=== PATIENT | female | born 1980 | race Caucasian/White ===

== ENCOUNTER → 2018-03-30 | Outpatient (CLI) | payer OTHER ==
--- NOTE | 2018-03-30 14:10 | US ---
EXAMINATION TYPE: Transabdominal DATE OF EXAM: 01/04/18 COMPARISON: NONE CLINICAL HISTORY: O46.91Antepartum hemorrhage, unspecified, first tr. brown discharge noticed 4 days prior, pink discharge seen yesterday, no cramping. . Positive beta-hCG test. EXAM PERFORMED: OBTA EXAM MEASUREMENTS: GESTATIONAL AGE / DATING Physician Established: (12 weeks/3 days) EDC: 10/09/2018 Dates by LMP: (12 weeks/3 days) EDC: 10/09/2018 Dates by First Scan: No previous this is first scan Dates by Current Scan for: (9 weeks/2 days) EDC: 10/31/2018 MATERNAL ANATOMY Uterus: 13.8 x 7.1 x 5.7cm Right Ovary: 3.0 x 1.8 x 2.0cm Left Ovary: 3.5 x 3.2 x 3.2cm Post CDS / Adnexa: wnl Presence of free fluid: no Presence of corpus luteal cyst: possible on the left = 2.5cm Presence of subchorionic bleed: no GESTATION / SURVEY CRL: not seen MSD: 3.7cm (9 weeks/2 days) Yolk Sac (normal less than 6mm): 0.3cm IUP: gestation sac with possible yolk sac only Date of LMP: 01/02/2018 Beta HcG (if available): not available tech impression given to Dr potter regarding no fetus seen within 9 week gestational sac Anteverted uterus is seen. Endometrium is slightly thickened. There is centrally elongated anechoic a traci could reflect gestational sac, this is abnormal in appearance due to inferior elongation. No feta l pole is present. There is possible tiny 3 to 4 mm yolk sac marked image 23 inferiorly. No free flui d is seen in pelvic cul-de-sac. Both ovaries are identified. No suspicious extraovarian adnexal lesions are seen. IMPRESSION: Abnormal study, given patient's history of discharge and physician established date of confinement ba sed on last known menstrual period ongoing spontaneous is suspected. Ectopic and t oo early to visualize intrauterine gestation though felt much less likely are not excluded. Consider serial beta hCG and/or ultrasound follow-up.
== END | disposition home or self-care (01) ==
LOC: RADUSWWP 13:03
PROVIDERS: ATTEND Obstetrics & Gynecology
DX: O00.91 Unspecified ectopic pregnancy with intrauterine pregnancy (principal); Z3A.09 9 weeks gestation of pregnancy
CPT/HCPCS: 76801

== ENCOUNTER → 2018-04-01 | Outpatient (CLI) | payer OTHER | END | disposition home or self-care (01) | LOC: LABWHC1 11:34 | PROVIDERS: ATTEND Obstetrics & Gynecology | DX: O03.9 Complete or unspecified spontaneous abortion without complication (principal) | CPT/HCPCS: 36415; 84702 ==

== ENCOUNTER → 2018-04-09 | Outpatient (CLI) | payer OTHER | END | disposition home or self-care (01) | LOC: LABWHC1 10:18 | PROVIDERS: ATTEND Obstetrics & Gynecology | DX: O03.9 Complete or unspecified spontaneous abortion without complication (principal) | CPT/HCPCS: 36415; 84702 ==

== ENCOUNTER → 2018-04-18 | Outpatient (CLI) | payer OTHER | END | disposition home or self-care (01) | LOC: LABWHC1 10:16 | PROVIDERS: ATTEND Obstetrics & Gynecology | DX: O03.9 Complete or unspecified spontaneous abortion without complication (principal) | CPT/HCPCS: 36415; 84702 ==

== ENCOUNTER → 2019-02-16 | Outpatient (CLI) | payer OTHER ==
--- NOTE | 2019-02-17 07:31 | US ---
EXAMINATION TYPE: US pelvic complete DATE OF EXAM: 02/16/2019 COMPARISON: NONE CLINICAL HISTORY: N93.8 DUB. Irregular periods x couple months, 3, para 2, miscarriage 1 TECHNIQUE: . Transabdominal sonographic images of the pelvis were acquired. Date of LMP: 01/20/2019 EXAM MEASUREMENTS: Uterus: 9.9 x 4.3 x 5.4 cm Endometrial Stripe: 0.9 cm Right Ovary: 2.7 x 1.8 x 2.0 cm Left Ovary: 2.9 x 2.3 x 2.4 cm 1. Uterus: anteverted, borderline enlarged, mildly heterogeneous 2. Endometrium: wnl 3. Right Ovary: wnl 4. Left Ovary: 2.0 x 1.4 x 1.8cm cystic area 5. Bilateral Adnexa: wnl 6. Posterior cul-de-sac: wnl IMPRESSION: Small left ovarian cyst. Heterogeneous echotexture within the myometrium is underlying fi broid uterus. Pelvic MRI may be of benefit.
== END | disposition home or self-care (01) ==
LOC: RADUSWWP 16:15
PROVIDERS: ATTEND Obstetrics & Gynecology
DX: N85.8 Other specified noninflammatory disorders of uterus (principal); N83.202 Unspecified ovarian cyst, left side
CPT/HCPCS: 76856

== ENCOUNTER 2020-01-22 02:52 | Emergency (ER) | payer OTHER ==
--- NOTE | 2020-01-22 03:02 | ED ---
Female Urogenital HPI - General Stated complaint: Abdominal Pain, 5 wks Time Seen by Provider: 01/22/20 02:58 Source: RN notes reviewed, old records reviewed - History of Present Illness Initial comments: This is a 39-year-old female DF for evaluation patient presents today for evaluation of possible versus abdominal pain and no scant discharge no active bleeding. Mild nausea no active vomiting. Patient is a . Coming in for 2 days of abdominal pain MD Complaint: pelvic pain -: days(s) (2) Radiation: suprapubic, RLQ Severity: moderate Severity scale (1-10): 7 Quality: cramping, aching Consistency: constant Improves with: none Worsens with: none Patient : Yes Associated Symptoms: vaginal discharge - Related Data Allergies Allergy/AdvReac Type Severity Reaction Status Date / Time latex Allergy Anaphylaxis Verified 01/22/20 03:04 Review of Systems ROS Statement: Those systems with pertinent positive or pertinent negative responses have been documented in the HPI. ROS Other: All systems not noted in ROS Statement are negative. General Exam General appearance: alert, in no apparent distress, anxious Head exam: Present: atraumatic, normocephalic, normal inspection Eye exam: Present: normal appearance, PERRL, EOMI. Absent: scleral icterus, conjunctival injection, periorbital swelling ENT exam: Present: normal exam, mucous membranes moist Neck exam: Present: normal inspection. Absent: tenderness, meningismus, lymphadenopathy Respiratory exam: Present: normal lung sounds bilaterally. Absent: respiratory distress, wheezes, rales, rhonchi, stridor Cardiovascular Exam: Present: normal rhythm, tachycardia, normal heart sounds. Absent: systolic murmur, diastolic murmur, rubs, gallop, clicks GI/Abdominal exam: Present: soft, tenderness (Suprapubic), normal bowel sounds. Absent: distended, guarding, rebound, rigid Extremities exam: Present: normal inspection, full ROM, normal capillary refill. Absent: tenderness, pedal edema, joint swelling, calf tenderness Back exam: Present: normal inspection Neurological exam: Present: alert, oriented X3, CN II-XII intact Psychiatric exam: Present: normal affect, normal mood Skin exam: Present: warm, dry, intact, normal color. Absent: rash Course Vital Signs 01/22/20 03:02 Temperature 98.4 F Pulse Rate 127 H Respiratory 16 Rate Blood Pressure 134/87 O2 Sat by Pulse 98 Oximetry - Reevaluation(s) Reevaluation #1: 01/22/20 05:03 Medical records reviewed Reevaluation #2: 01/22/20 05:03 Patient is not requiring pain control here in the ER Reevaluation #3: 01/22/20 05:03 Spoke with patient and aware of results questions answered - Consultations Consultation #1: Spoke with Dr. Yu for Dr. Coello will see in the office Wednesday for repeat beta hCG Medical Decision Making - Medical Decision Making 39 female DF for abdominal pain and pelvic pain and . Patient is in no acute distress with normal hemoglobin normal vital signs here in the ER heart rate is improved, urine is negative we will culture ultrasound too early for beta, will follow-up for repeat beta on Wednesday - Lab Data Result diagrams: 01/22/20 03:30 01/22/20 03:30 Lab Results 01/22/20 01/22/20 01/22/20 Range/Units 03:10 03:30 03:30 WBC 5.4 (3.8-10.6) k/uL RBC 4.63 (3.80-5.40) m/uL Hgb 13.2 (11.4-16.0) gm/dL Hct 40.2 (34.0-46.0) % MCV 86.8 (80.0-100.0) fL MCH 28.4 (25.0-35.0) pg MCHC 32.7 (31.0-37.0) g/dL RDW 12.5 (11.5-15.5) % Plt Count 183 (150-450) k/uL Neutrophils % 39 % Lymphocytes % 49 % Monocytes % 4 % Eosinophils % 4 % Basophils % 1 % Neutrophils # 2.1 (1.3-7.7) k/uL Lymphocytes # 2.6 (1.0-4.8) k/uL Monocytes # 0.2 (0-1.0) k/uL Eosinophils # 0.2 (0-0.7) k/uL Basophils # 0.0 (0-0.2) k/uL PT 10.1 (9.0-12.0) sec INR 1.0 (<1.2) APTT 22.8 (22.0-30.0) sec Sodium (137-145) mmol/L Potassium (3.5-5.1) mmol/L Chloride (98-107) mmol/L Carbon Dioxide (22-30) mmol/L Anion Gap mmol/L BUN (7-17) mg/dL Creatinine (0.52-1.04) mg/dL Est GFR (CKD-EPI)AfAm (>60 ml/min/1.73 sqM) Est GFR (CKD-EPI)NonAf (>60 ml/min/1.73 sqM) Glucose (74-99) mg/dL Calcium (8.4-10.2) mg/dL Total Bilirubin (0.2-1.3) mg/dL AST (14-36) U/L ALT (4-34) U/L Alkaline Phosphatase (38-126) U/L Total Protein (6.3-8.2) g/dL Albumin (3.5-5.0) g/dL HCG, Quant mIU/mL Urine Color Yellow Urine Appearance Clear (Clear) Urine pH 6.0 (5.0-8.0) Ur Specific [place] 1.019 (1.001-1.035) Urine Protein Negative (Negative) Urine Glucose (UA) Negative (Negative) Urine Ketones 1+ H (Negative) Urine Blood Small H (Negative) Urine Nitrite Negative (Negative) Urine Bilirubin Negative (Negative) Urine Urobilinogen <2.0 (<2.0) mg/dL Ur Leukocyte Esterase Large H (Negative) Urine RBC 1 (0-5) /hpf Urine WBC 9 H (0-5) /hpf Ur Squamous Epith Cells 4 (0-4) /hpf Urine Bacteria Occasional H (None) /hpf Urine Mucus Few H (None) /hpf Blood Type Blood Type Recheck Bld Type Recheck Status 01/22/20 01/22/20 Range/Units 03:30 03:30 WBC (3.8-10.6) k/uL RBC (3.80-5.40) m/uL Hgb (11.4-16.0) gm/dL Hct (34.0-46.0) % MCV (80.0-100.0) fL MCH (25.0-35.0) pg MCHC (31.0-37.0) g/dL RDW (11.5-15.5) % Plt Count (150-450) k/uL Neutrophils % % Lymphocytes % % Monocytes % % Eosinophils % % Basophils % % Neutrophils # (1.3-7.7) k/uL Lymphocytes # (1.0-4.8) k/uL Monocytes # (0-1.0) k/uL Eosinophils # (0-0.7) k/uL Basophils # (0-0.2) k/uL PT (9.0-12.0) sec INR (<1.2) APTT (22.0-30.0) sec Sodium 137 (137-145) mmol/L Potassium 3.8 (3.5-5.1) mmol/L Chloride 104 (98-107) mmol/L Carbon Dioxide 22 (22-30) mmol/L Anion Gap 11 mmol/L BUN 12 (7-17) mg/dL Creatinine 0.56 (0.52-1.04) mg/dL Est GFR (CKD-EPI)AfAm >90 (>60 ml/min/1.73 sqM) Est GFR (CKD-EPI)NonAf >90 (>60 ml/min/1.73 sqM) Glucose 101 H (74-99) mg/dL Calcium 9.7 (8.4-10.2) mg/dL Total Bilirubin 0.4 (0.2-1.3) mg/dL AST 22 (14-36) U/L ALT 16 (4-34) U/L Alkaline Phosphatase 51 (38-126) U/L Total Protein 8.0 (6.3-8.2) g/dL Albumin 4.9 (3.5-5.0) g/dL HCG, Quant 602.7 mIU/mL Urine Color Urine Appearance (Clear) Urine pH (5.0-8.0) Ur Specific [place] (1.001-1.035) Urine Protein (Negative) Urine Glucose (UA) (Negative) Urine Ketones (Negative) Urine Blood (Negative) Urine Nitrite (Negative) Urine Bilirubin (Negative) Urine Urobilinogen (<2.0) mg/dL Ur Leukocyte Esterase (Negative) Urine RBC (0-5) /hpf Urine WBC (0-5) /hpf Ur Squamous Epith Cells (0-4) /hpf Urine Bacteria (None) /hpf Urine Mucus (None) /hpf Blood Type A Positive Blood Type Recheck No Previous Record Bld Type Recheck Status ABR ONLY - Radiology Data Radiology results: report reviewed (Ultrasound shows no definite gestational sac no ectopic), image reviewed Disposition Clinical Impression: Pelvic pain, Abdominal pain affecting Narrative: Ectopic V Early v Miscarriage Disposition: ADMITTED IP TO THIS [facility] Condition: Good Instructions (If sedation given, give patient instructions): Abdominal Pain in (ED) Is patient prescribed a controlled substance at d/c from ED?: No Referrals: Dirk Reilly III, MD [Primary Care Provider] - 1-2 days Prisca Coello DO [Doctor of Osteopathic Medicine] - 1-2 days
[2020-01-22 03:04] VITALS: BP 134/87; PULSE 127; RESP 16; TEMP 98.4
[2020-01-22] MEDS ORDERED: SODIUM CHLORIDE 0.9% 500 ML 500 ML IV ONE (03:09)
[2020-01-22] MEDS: SODIUM CHLORIDE 0.9% 1,000 ML IV ONE ×2 (03:43→03:44)
[2020-01-22 03:58] LABS: Basophils % (A) 1 %; Eosinophils # (A) 0.2 k/uL (0-0.7); Eosinophils % (A) 4 %; HCT 40.2 % (34.0-46.0); HGB 13.2 gm/dL (11.4-16.0); Lymphocytes # (A) 2.6 k/uL (1.0-4.8); Lymphocytes % (A) 49 %; MCH 28.4 pg (25.0-35.0); MCHC 32.7 g/dL (31.0-37.0); MCV 86.8 fL (80.0-100.0); Mean Platelet Volume 9.3; Monocytes # (A) 0.2 k/uL (0-1.0); Monocytes % (A) 4 %; Neutrophils # (A) 2.1 k/uL (1.3-7.7); Neutrophils % (A) 39 %; Platelet Count 183 k/uL (150-450); RBC 4.63 m/uL (3.80-5.40); RDW 12.5 % (11.5-15.5); WBC 5.4 k/uL (3.8-10.6)
[2020-01-22 04:05] LABS: Partial Thromboplastin Time 22.8 sec (22.0-30.0); Prothrombin Time 10.1 sec (9.0-12.0)
[2020-01-22 04:17] LABS: Appearance,Urine Clear (Clear); Bacteria,Urine Occasional /hpf; Bilirubin,Urine Negative (Negative); Blood,Urine Small (Negative); Color,Urine Yellow; Glucose,Urine (UA) Negative (Negative); Ketones,Urine 1+ (Negative); Leukocyte Esterase,Urine Large (Negative); Mucus,Urine Few /hpf; Nitrite,Urine Negative (Negative); Protein,Urine Negative (Negative); RBC,Urine 1 /hpf (0-5); Specific Gravity,Urine 1.019 (1.001-1.035); Squamous Epithelial Cell,Urine 4 /hpf (0-4); Urobilinogen,Urine <2.0 mg/dL (<2.0); WBC,Urine 9 /hpf (0-5)
[2020-01-22 04:20] LABS: ALT 16 U/L (4-34); AST 22 U/L (14-36); African American GFR (CKD) >90 (>60 ml/min/1.73 sqM); Albumin 4.9 g/dL (3.5-5.0); Alkaline Phosphatase 51 U/L (38-126); Anion Gap 11 mmol/L; Blood Urea Nitrogen 12 mg/dL (7-17); Calcium 9.7 mg/dL (8.4-10.2); Carbon Dioxide 22 mmol/L (22-30); Chloride 104 mmol/L (98-107); Glucose 101 mg/dL (74-99); Non-African American GFR(CKD) >90 (>60 ml/min/1.73 sqM); Potassium 3.8 mmol/L (3.5-5.1); Sodium 137 mmol/L (137-145); Total Bilirubin 0.4 mg/dL (0.2-1.3)
--- NOTE | 2020-01-22 04:36 | US ---
EXAMINATION TYPE: Transabdominal DATE OF EXAM: 01/22/2020 4:23 AM COMPARISON: NONE CLINICAL HISTORY: pain. EXAM PERFORMED: EXAM MEASUREMENTS: GESTATIONAL AGE / DATING Physician Established: Not yet established Dates by LMP: (5 weeks/3 days) EDC: 09/20/20 Dates by First Scan: No previous this is first scan Dates by Current Scan for: Unable to date by today's study MATERNAL ANATOMY Uterus: 8.4 x 4.4 x 5.5cm Right Ovary: 1.9 x 1.5 x 1.5cm Arterial and venous flow shown within ovary. No evidence of torsion Left Ovary: obscured by bowel gas Post CDS / Adnexa: wnl Mild free fluid seen in cul de sac. GESTATION / SURVEY MSD: 0.6 cm (Too early to date) Date of LMP: 12/15/19 Beta HcG (if available): Not available at this time Possible early , can't rule out ectopic or miscarriage at this time. IMPRESSION: Tiny amount of endometrial fluid. There is not a definite intrauterine gestational sac. No adnexal ma ss. No evidence of ovarian torsion.
[2020-01-22 04:38] LABS: HCG,Quantitative Serum 602.7 mIU/mL
== END 2020-01-22 05:16 | disposition other institution (70) ==
LOC: EC 02:52
DX: O26.891 Other specified pregnancy related conditions, first trimester (principal); R10.2 Pelvic and perineal pain; Z3A.01 Less than 8 weeks gestation of pregnancy; Z91.040 Latex allergy status
CPT/HCPCS: 36415; 76801; 76817; 80053; 81001; 84702; 85025; 85610; 85730; 86900; 86901; 96360; 96361; 99285

== ENCOUNTER → 2020-01-24 | Outpatient (CLI) | payer OTHER | END | disposition home or self-care (01) | LOC: LABWHC1 08:23 | PROVIDERS: ATTEND Emergency Medicine | DX: O00.90 Unspecified ectopic pregnancy without intrauterine pregnancy (principal) | CPT/HCPCS: 36415; 84702 ==

== ENCOUNTER → 2020-01-31 | Outpatient (CLI) | payer OTHER | END | disposition home or self-care (01) | LOC: LABWHC1 09:17 | PROVIDERS: ATTEND Obstetrics & Gynecology | DX: O03.9 Complete or unspecified spontaneous abortion without complication (principal) | CPT/HCPCS: 36415; 84702 ==

== ENCOUNTER → 2020-02-07 | Outpatient (CLI) | payer OTHER | END | disposition home or self-care (01) | LOC: LABWHC1 08:29 | PROVIDERS: ATTEND Obstetrics & Gynecology | DX: O03.9 Complete or unspecified spontaneous abortion without complication (principal) | CPT/HCPCS: 36415; 84702 ==

== ENCOUNTER → 2020-02-16 | Outpatient (CLI) | payer OTHER ==
[2020-02-16 15:44] LABS: T3, Uptake 26 % (23-37)
[2020-02-16 16:36] LABS: T4, Free (Free Thyroxine) 0.9 ng/dL (0.80-1.80)
[2020-02-16 17:06] LABS: Cardiolipin Ab IgG Interp NEGATIVE (NEGATIVE); Cardiolipin Ab IgM Interp NEGATIVE (NEGATIVE); Cardiolipin IgA Antibody <0.5 U/mL; Cardiolipin IgM Antibody <0.2 U/mL
[2020-02-19 14:17] LABS: APTT 35 Sec(s) (<43); Dilute Russell Viper Venom 38 Sec(s) (<44); Protein S Antigen 85 % (50 - 140)
== END | disposition home or self-care (01) ==
LOC: LABWHC1 08:21
PROVIDERS: ATTEND Obstetrics & Gynecology
DX: N96 Recurrent pregnancy loss (principal)
CPT/HCPCS: 36415; 81240; 81241; 84439; 84443; 84479; 85300; 85303; 85305; 85613; 85730; 86147; 86850; 86900; 86901

== ENCOUNTER → 2020-10-02 | Outpatient (CLI) | payer OTHER ==
--- NOTE | 2020-10-02 11:35 | US ---
EXAMINATION TYPE: US OB anatomy transabd DATE OF EXAM: 10/02/2020 COMPARISON: NONE HISTORY: 40-year-old female O36.62X0 LARGE FOR DATES. LGA, Anatomy scan TECHNIQUE: Transabdominal (TA) FINDINGS: EXAM MEASUREMENTS: GESTATIONAL AGE / DATING Physician Established: (19 weeks/5 days) EDC: 02/21/2021 Dates by LMP: (19 weeks/5 days) EDC: 02/22/2021 Dates by First Scan: No prior Dates by Current Scan for: (19 weeks/4 days) EDC: 02/22/2021 SURVEY IUP: Single PLACENTA: Posterior & Fundal PREVIA: No previa TIMOTHY: 11.9 cm Normal CERVICAL LENGTH (transabdominal: norm > 3.0cm): 4.3 cm BIOMETRY PRESENTATION: Breech BPD: 4.7 cm 20 weeks / 2 days HC: 16.9 cm 19 weeks / 4 days AC: 14.7 cm 20 weeks / 0 days FL: 3.1 cm 19 weeks / 4 days ESTIMATED WEIGHT IN GRAMS: 312.9 grams ESTIMATED WEIGHT IN LBS/OZ: 0 lbs. 11 oz. WEIGHT PERCENTAGE BASED ON ESTABLISHED DATE: 49.6 % HC/AC: 1.15 Normal FL/AC: 21 Normal HEART RATE: 142 bpm RHYTHM: Normal ANATOMY SEEN (within normal limits): Cisterna Magna (< 1.1 cm) 0.3 cm Nuchal Fold (< 0.6 cm) 0.2 cm Cerebellum (varies with age) 1.8 cm Choroid Plexus (bilateral) Midline Falx Cavus Septi Pellucidi Four Chamber Heart Outflow tracts: LVOT/RVOT Stomach Situs Nose / Lips Diaphragm Bladder Cord Insert Three Vessel Cord Longitudinal Spine Transverse Spine Arms (bilateral) Legs (bilateral) ANATOMY SEEN (May not appear within normal limits): Lateral Vent (< 1 cm) 0.9 cm, (upper limits of normal in size can be reassessed at follow-up) Kidneys (bilateral) Right renal pelvis= 3 mm Soaking Pit Operator notes:Single, viable IUP, Right renal pelvis fullness IMPRESSION: 1. Single live intrauterine with established gestational age of 19 weeks 5 days by LMP. Cur rent ultrasound biometry is concordant (19 weeks 4 days) placing the child at the 50th percentile for weight. 2. The lateral ventricle is borderline in size (9 mm) and there is also slight asymmetric fullness of the right renal pelvis at 3 mm. Otherwise, the remaining anatomy appears normal. Consider shor t interval follow-up to reassess these 2 structures.
== END | disposition home or self-care (01) ==
LOC: RADUSWWP 09:00
PROVIDERS: ATTEND Obstetrics & Gynecology
DX: O36.62X0 Maternal care for excessive fetal growth, second trimester, not applicable or unspecified (principal); Z3A.19 19 weeks gestation of pregnancy
CPT/HCPCS: 76811

== ENCOUNTER → 2020-11-11 | Outpatient (CLI) | payer OTHER ==
--- NOTE | 2020-11-11 13:11 | US ---
EXAMINATION TYPE: US OB >= 14 wk fetus DATE OF EXAM: 11/11/2020 COMPARISON: 10/02/2020 CLINICAL HISTORY: 40-year-old female Z36 Reevaluation O09.529. Reassess vent and rt renal TECHNIQUE: OBTA FINDINGS: GESTATIONAL AGE / DATING Physician Established: (25 weeks/3 days) EDC: 02/21/2021 Dates by LMP: (25 weeks/2 days) EDC: 02/22/2021 Dates by First Scan: (25 weeks/2 days) EDC: 02/22/2021 Dates by Current Scan: (26 weeks/0 days) EDC: 02/17/2021 (5 days more growth than expected compared to 10/02/2020) SURVEY IUP: Single PLACENTA: Posterior PREVIA: No Previa TIMOTHY: 20.6 cm high normal (versus 11.9 cm, previously) CERVICAL LENGTH (transabdominal: norm > 3.0cm): 4.0 cm BIOMETRY PRESENTATION: Vertex LIE: Longitudinal BPD: 6.4 cm 26 weeks / 0 days HC: 23.9 cm 26 weeks / 0 days AC: 21.4 cm 26 weeks / 0 days FL: 4.8 cm 26 weeks / 0 days ESTIMATED WEIGHT IN GRAMS: 867 grams ESTIMATED WEIGHT IN LBS/OZ: 1 lbs. 15 oz. WEIGHT PERCENTAGE BASED ON ESTABLISHED DATES: 61% HC/AC: 1.1 Normal FL/AC: 22 Normal HEART RATE: 139 bpm RHYTHM: Normal CORPORATE RISK ANALYST NOTES: Images of right renal pelvis measured 1-2mm in size, decrease from the 3mm seen previously Images of lateral ventricle measurements ranged from 7-8mm, previous measurement was 9mm. IMPRESSION: 1. Single live intrauterine with established gestational age of 25 weeks 3 days. Current ul trasound biometry is concordant though there has been 5 days more growth than expected compared to . (EFW percent 61% currently versus 50th percentile on 10/02/2020). 2. Right renal pelvis shows improvement now ranging between 1 to 2 mm versus 3 mm, previously. 3. The lateral ventricle also appears satisfactory, ranging between 7 to 8 mm versus 9 mm, previously . 4. Note that the TIMOTHY is now high normal (20.6 cm) versus 11.9 cm, previously. Follow-up as clinically indicated.
== END | disposition home or self-care (01) ==
LOC: RADUSWWP 09:55
PROVIDERS: ATTEND Obstetrics & Gynecology
DX: O09.529 Supervision of elderly multigravida, unspecified trimester (principal); Z3A.25 25 weeks gestation of pregnancy
CPT/HCPCS: 76805

== ENCOUNTER → 2021-01-22 | Outpatient (CLI) | payer OTHER ==
--- NOTE | 2021-01-22 15:56 | US ---
EXAMINATION TYPE: US OB >= 14 wk fetus DATE OF EXAM: 01/22/2021 COMPARISON: US's CLINICAL HISTORY: O36.63X0 Large for dates 3rd trimester TECHNIQUE: Transabdominal (TA) GESTATIONAL AGE / DATING Physician Established: (35 weeks/5 days) EDC: 02/21/2021 Dates by LMP: (35 weeks/5 days) EDC: 02/21/2021 Dates by First Scan: (35 weeks/4 days) EDC: 02/22/2021 Dates by Current Scan: (36 weeks/4 days) EDC: 02/15/2021 Beta HCG (if available): not available SURVEY IUP: Single Placenta noted fundally, no previa TIMOTHY: 13.7 cm Normal CERVICAL LENGTH (transabdominal: norm > 3.0cm): 4.7 cm BIOMETRY PRESENTATION: Breech BPD: 8.7 cm 35 weeks / 2 days HC: 32.5 cm 36 weeks / 6 days AC: 33.4 cm 37 weeks / 3 days FL: 7.2 cm 36 weeks / 5 days ESTIMATED WEIGHT IN GRAMS: 3042 grams ESTIMATED WEIGHT IN LBS/OZ: 6 lbs. 11 oz. WEIGHT PERCENTAGE BASED ON ESTABLISHED DATES: 80% HC/AC: 1.0 Normal FL/AC: 21 Normal HEART RATE: 149 bpm RHYTHM: Normal IMPRESSION: Single viable intrauterine in the breech presentation. Estimated weight is within the medial femoral percentile.
== END | disposition home or self-care (01) ==
LOC: RADUSWWP 15:01
PROVIDERS: ATTEND Obstetrics & Gynecology
DX: O32.1XX0 Maternal care for breech presentation, not applicable or unspecified (principal)
CPT/HCPCS: 76805

== ENCOUNTER → 2021-08-10 | Outpatient (CLI) | payer OTHER | END | disposition home or self-care (01) | LOC: LABWHC1 13:13 | PROVIDERS: ATTEND Emergency Medicine | DX: Z20.822 Contact with and (suspected) exposure to COVID-19 (principal) | CPT/HCPCS: 87635 ==

== ENCOUNTER → 2021-08-12 | Outpatient (CLI) | payer OTHER | END | disposition home or self-care (01) | LOC: LABWHC1 11:03 | PROVIDERS: ATTEND Emergency Medicine | DX: Z20.822 Contact with and (suspected) exposure to COVID-19 (principal) | CPT/HCPCS: 87635 ==

== ENCOUNTER → 2022-08-19 | Outpatient (CLI) | payer OTHER ==
--- NOTE | 2022-08-20 18:34 | MM ---
Reason for Exam: Screening (asymptomatic). Patient History: Menarche at age 14. First Full-Term at age 28. Progesterone, from age 40 until age 40. Currently . Last menstrual period: 07/26/2022 Risk Values: Rosana 5 year model risk: 0.7%. NCI Lifetime model risk: 10.0%. Tissue Density: The breast tissue is extremely dense which could obscure a lesion on mammography. Findings: Analyzed By CAD. No significant mass, suspicious microcalcification, or other discrete abnormality is seen. Note the extremely dense breast tissue likely in part due to current breast-feeding. Overall Assessment: Benign, BI-RAD 2 Management: Screening Mammogram of both breasts in 1 year. Note the extremely dense breast tissue likely in part due to current breast-feeding. If desired, supplementary screening ultrasound can be performed. Patient should continue monthly self breast exams. These results should not preclude additional follow-up of suspicious palpable abnormalities. Electronically signed and approved by: Alireza Lopez M.D. Radiologist
== END | disposition home or self-care (01) ==
LOC: RADMAMWWP 09:50
PROVIDERS: ATTEND Obstetrics & Gynecology
DX: Z12.31 Encounter for screening mammogram for malignant neoplasm of breast (principal)
CPT/HCPCS: 77067

== ENCOUNTER → 2023-09-01 | Outpatient (CLI) | payer OTHER ==
--- NOTE | 2023-09-02 10:45 | MM ---
Reason for Exam: Screening (asymptomatic). Last screening mammogram was performed 12 month(s) ago. Patient History: Menarche at age 14. First Full-Term at age 28. Premenopausal. Progesterone, from age 40 until age 40. Last menstrual period: 08/31/2023 Risk Values: Rosana 5 year model risk: 0.7%. NCI Lifetime model risk: 9.9%. Prior Study Comparison: 08/19/2022 Bilateral MG screening mammo w CAD, PH. Tissue Density: The breast tissue is extremely dense which could obscure a lesion on mammography. Findings: Analyzed By CAD. There is no suspicious group of microcalcifications or new suspicious mass in either breast. Overall Assessment: Benign, BI-RAD 2 Management: Screening Mammogram of both breasts in 1 year. . Patient should continue monthly self-breast exams. A clinical breast exam by your physician is recommended on an annual basis. This exam should not preclude additional follow-up of suspicious palpable abnormalities. Note on Rosana scores and lifetime risk: 1. A Rosana score greater than 3% is considered moderate risk. If this is the case, consider specialist referral to assess eligibility for a risk reducing agent. 2. If overall lifetime risk for the development of breast cancer is 20% or higher, the patient may qualify for future screening with alternating mammogram and breast MRI. Electronically signed and approved by: Shahbaz Winter M.D. Radiologis
== END | disposition home or self-care (01) ==
LOC: RADMAMWWP 08:20
PROVIDERS: ATTEND Obstetrics & Gynecology
DX: Z12.31 Encounter for screening mammogram for malignant neoplasm of breast (principal)
CPT/HCPCS: 77063; 77067